=== PATIENT | male | born 1945 | race American Indian/Alaskan Native ===

== ENCOUNTER 2017-02-19 09:34 | Day surgery (SDC) | payer MEDICARE ==
[2017-02-19] MEDS ORDERED: NACL 0.9% 1000 ML 1,000 ML IV SCH (10:00)
[2017-02-19] MEDS ORDERED: DIPRIVAN 10 MG/ML IV ONE ×2 (10:26)
[2017-02-19] MEDS ORDERED: AMIDATE IV ONE (10:41)
--- NOTE | 2017-02-19 10:55 | Anesthesia Day of Surgery ---
Anesthesia Day of Surgery - Day of Surgery Patient Examined: Yes Patient H&P Reviewed: Yes Patient is NPO: Yes
--- NOTE | 2017-02-19 10:56 | Anesthesia Consultation ---
Anesthesia Consult and Med Hx Date of service: 02/19/17 - Airway Anesthetic Teeth Evaluation: Dentures (upper and lower) Mallampati Class: Class II Intubation Access Assessment: Possibly Difficult - Pulmonary Exam CTA: Yes - Cardiac Exam Cardiac Exam: RRR - Pre-Operative Health Status ASA Pre-Surgery Classification: ASA3 - Pulmonary Hx Smoking: Yes COPD: Yes (emphysema) - Cardiovascular System Hx Hypertension: Yes Hx Heart Attack/AMI: No - Central Nervous System Hx Seizures: No CVA: No - Endocrine Hx Renal Disease: No Hx Liver Disease: No Hx Non-Insulin Dependent Diabetes: No - Other Systems Hx Alcohol Use: Yes - Additional Comments Anesthesia Medical History Comments: NAC
--- NOTE | 2017-02-19 11:39 | Short Stay Summary ---
Short Stay Documentation Date of service: 02/19/17 Narrative H&P: The patient presents for f/u colonoscopy for a history of multiple polyps. Last study was 4-5 years ago. - History Past Medical History: COPD, heart failure, hypertension Past Surgical History: Other (Leg surgery) Social history: no significant social history - Allergies and Medications Current Medications: Allergies No Known Allergies Allergy (Verified 02/19/17 09:51) Home Medications Medication Instructions Recorded Confirmed Last Taken Type Finasteride 1 tab PO DAILY 02/19/17 02/19/17 02/18/17 History Furosemide 20 mg PO DAILY 02/19/17 02/19/17 02/19/17 History Active Medications Sodium Chloride (Nacl 0.9% 1000 Ml) 1,000 mls @ 50 mls/hr IV DIRECT JAMMIE Last Admin: 02/19/17 10:34 Dose: 50 mls/hr - Physical exam General appearance: no acute distress, mild distress, well-nourished Integumentary: no rash, no growths, no abnormal pigmentation HEENT: Atraumatic, PERRLA, EOMI, Mucous membr. moist/pink Lungs: Clear to auscultation, Normal air movement Breasts: deferred Heart: Regular rate, Normal S1, Normal S2, No murmurs Gastrointestinal: normoactive bowel sounds, no tenderness, no distended, no masses, no guarding, no hepatomegaly, no splenomegaly Male Genitourinary: deferred Rectal Exam: no mass, decreased tone Extremities: no ischemia, pulses intact, pulses symmetrical, No edema, normal temperature, normal color Neurological: Normal gait, Normal speech, Strength at 5/5 X4 ext, Normal tone, Sensation intact, Cranial nerves 3-12 NL - Brief post op/procedure progress note Date of procedure: 02/19/17 Findings: see dictation Estimated blood loss: none Pathology: list (1. Two cecal polyps, 2. Ascending polyp 3. Transverse polyp 4. descending polyp) Specimen disposition: to lab Condition: stable - Disposition Condition at discharge: Good Disposition: DC-01 TO HOME OR SELFCARE - Discharge Diagnoses (1) History of colon polyps Status: Acute Short Stay Discharge Plan Activity: other (no driving for 24 hours) Weight Bearing Status: Weight Bear as Tolerated Diet: regular Follow up with: CHAPARRO SEE MD [Primary Care Provider] - 7 Days
--- NOTE | 2017-02-19 11:46 | Operative Report ---
Operative Report Operative Report: Date of procedure: 02/19/2017 Preprocedure diagnosis: History of colon polyps Post procedure diagnosis: Multiple recurrent polyps Procedure: Colonoscopy to the cecum with snare polypectomy 5 Endoscopist: Dr. Delgadillo Anesthesia: Monitored anesthesia care per anesthesia department Estimated blood loss: 0 Medications: Monitored anesthesia care. See separate report by anesthesia for details. After careful discussion of the nature and purpose of the procedure as well as details of the technique risks benefits and alternatives the patient gave consent. Please see recent history and physical from the office. The patient was placed in the left lateral decubitus position and medicated per anesthesia. A rectal exam was performed sphincter tone was normal there were no masses palpable. The [employer] 570 scope was passed transanally and advanced under continuous direct vision without difficulty to the cecum. The colon was well prepared. The cecum revealed a 1.2 cm pedunculated polyp and a 5 mm sessile polyp. The larger polyp was removed with snare electrocautery and the smaller polyp removed with cold snare resection. Both were completely removed and retrieved. The larger polyp was resected with a cold snare to allow suction retrieval without having to reintroduce the scope the length of the colon. There was a diminutive polyp in the ascending colon which was removed with cold snare resection and retrieved by suction. The ascending colon otherwise revealed mild diverticulosis. The transverse colon revealed a 1 cm pedunculated polyp which was removed with snare and electrocautery. The polyp was retrieved on the tip of the scope withdrawal of the instrument. There was an 8 mm sessile polyp in the descending colon which was removed by snare and electrocautery and retrieved by suction. Scattered diverticular were found throughout the transverse colon and descending colon and sigmoid colon to a moderate extent. The rectum was normal on forward and retroflexed views. The procedure was well- tolerated overall and the patient was observed in recovery. Conclusions: #1 Two cecal polyps #2 diminutive ascending polyp #3 transverse colon polyp #4 descending colon polyp #5 moderate diverticulosis throughout Plan: Await pathology. Repeat colonoscopy in one year in light of the number of polyps (5). Signed electronically: Pradepe Delgadillo M.D.
[2017-02-19 12:17] VITALS: BP 144/77
--- NOTE | 2017-02-19 13:35 | Post Anesthesia Evaluation ---
- Post Anesthesia Evaluation Patient Participated: Yes Airway Patent: Yes Stable Respiratory Function: Yes Nausea/Vomiting: No Temp > 96.8F: Yes Pain Manageable: Yes Adequeate Hydration: Yes Anesthesia Complications: No
== END 2017-02-19 09:35 | disposition home or self-care (01) ==
LOC: GIO 09:34
PROVIDERS: ATTEND Internal Medicine Gastroenterology
DX: Z09 Encounter for follow-up examination after completed treatment for conditions other than malignant neoplasm (principal); D12.0 Benign neoplasm of cecum; D12.2 Benign neoplasm of ascending colon; D12.4 Benign neoplasm of descending colon; D12.3 Benign neoplasm of transverse colon; K57.30 Diverticulosis of large intestine without perforation or abscess without bleeding; I11.0 Hypertensive heart disease with heart failure; I50.9 Heart failure, unspecified; J44.9 Chronic obstructive pulmonary disease, unspecified; Z87.891 Personal history of nicotine dependence; Z72.89 Other problems related to lifestyle; Z98.890 Other specified postprocedural states; Z79.899 Other long term (current) drug therapy; Z87.19 Personal history of other diseases of the digestive system
CPT/HCPCS: 45385; 88305; J2704; J7030